=== PATIENT | female | born 1955 | race Caucasian/White ===

== ENCOUNTER 2024-07-10 15:20 | Emergency (ER) | payer MEDICARE, BC ==
[~2024-07-10] VITALS: Ht 165.1 cm; Wt 56.2 kg
[2024-07-10] MEDS ORDERED: LIDOCAINE 1%-EPI 1:100,000 20 ML VIAL ONE (17:00)
[2024-07-10] MEDS: LIDOCAINE 1%-EPI 1:100,000 20 ML VIAL IJ ONE (17:45)
[2024-07-10] MEDS ORDERED: NEOMY/BACITRA/POLYMYXIN B OINT UD PACKET TP ONE (18:13)
[2024-07-10] MEDS: NEOMY/BACITRA/POLYMYXIN B OINT UD PACKET TP ONE (18:15)
[2024-07-10 18:18] VITALS: BP 119/77; O2SAT 98
== END 2024-07-10 18:18 | disposition home or self-care (01) ==
LOC: ER 16:13
DX: S01.01XA Laceration without foreign body of scalp, initial encounter (principal); G89.29 Other chronic pain; J45.909 Unspecified asthma, uncomplicated; Z88.1 Allergy status to other antibiotic agents; W22.09XA Striking against other stationary object, initial encounter; Y93.89 Activity, other specified; Y92.89 Other specified places as the place of occurrence of the external cause; Y99.8 Other external cause status
CPT/HCPCS: 12001; 70450; 72125; 99284; J3490; A4606; A4663